=== PATIENT | female | born 1990 ===

== ENCOUNTER 2018-05-01 23:10 | Inpatient (IN) | payer OTHER, SELFPAY ==
--- NOTE | 2018-05-01 23:53 | ED PDOC ---
HPI: Psych/Substance Abuse Chief Complaint (Provider): psych eval History Per: Patient History/Exam Limitations: no limitations Additional Complaint(s): 28 y/o female history of depression presents for psych eval. Patient states she is having suicidal ideations without current plan. Patient states yesterday she used a knife to cut her right thigh because she wanted to . Patient admits to previous attempts in past, including a hospitalization here. Patient states she did not take medications that were prescribed upon discharge and did not follow up as instructed. Denies homicidal ideations, hallucinations, acute physical complaints. Patient admits to drinking one bottle of wine tonight. <Payton Mello - Last Filed: 05/02/18 04:45> <Marco Antonio Graf - Last Filed: 05/02/18 06:49> Time Seen by Provider: 05/01/18 23:42 Chief Complaint (Nursing): Psychiatric Evaluation Past Medical History Reviewed: Historical Data, Nursing Documentation, Vital Signs Vital Signs: Last Vital Signs Temp 98.2 F 05/01/18 23:28 Pulse 90 05/01/18 23:28 Resp 16 05/01/18 23:28 BP 132/100 H 05/01/18 23:28 Pulse Ox 98 05/01/18 23:28 - Medical History PMH: Depression Denies: Diabetes, Hepatitis, HIV, HTN, Chronic Kidney Disease, Seizures, Sexually Transmitted Disease - Surgical History Surgical History: Cholecystectomy - Family History Family History: States: Unknown Family Hx - Immunization History Hx Tetanus Toxoid Vaccination: Yes <Payton Mello - Last Filed: 05/02/18 04:45> Vital Signs: Last Vital Signs Temp 98.8 F 05/02/18 05:49 Pulse 80 05/02/18 05:49 Resp 18 05/02/18 05:49 BP 107/61 05/02/18 05:49 Pulse Ox 98 05/02/18 05:49 <Marco Antonio Graf - Last Filed: 05/02/18 06:49> - Allergies Allergies/Adverse Reactions: Allergies Allergy/AdvReac Type Severity Reaction Status Date / Time No Known Allergies Allergy Verified 05/02/18 06:48 Review of Systems ROS Statement: Except As Marked, All Systems Reviewed And Found Negative Psych: Positive for: Depression, Suicidal ideation <Payton Mello - Last Filed: 05/02/18 04:45> Physical Exam - Reviewed Nursing Documentation Reviewed: Yes Vital Signs Reviewed: Yes - Physical Exam Appears: Positive for: Well, Non-toxic, No Acute Distress Head Exam: Positive for: ATRAUMATIC, NORMAL INSPECTION, NORMOCEPHALIC Skin: Positive for: Normal Color Eye Exam: Positive for: Normal appearance ENT: Positive for: Normal ENT Inspection Cardiovascular/Chest: Positive for: Regular Rate, Rhythm Respiratory: Positive for: Normal Breath Sounds Gastrointestinal/Abdominal: Positive for: Normal Exam Extremity: Positive for: Normal ROM (scabbed abrasions right thigh; no surrounding erythema, tenderness noted) Neurologic/Psych: Positive for: Alert, Oriented (x3) <Payton Mello - Last Filed: 05/02/18 04:45> - Laboratory Results Result Diagrams: 05/02/18 00:00 05/02/18 00:00 - ECG O2 Sat by Pulse Oximetry: 98 - Progress ED Course And Treament: -cbc -cmp -serum alcohol -urinalysis -urine drug screen -1:1 -crisis eval 2:30 Patient sleeping; no distress 4:00 Patient sleeping; no distress <Payton Mello - Last Filed: 05/02/18 04:45> - Laboratory Results Result Diagrams: 05/02/18 00:00 05/02/18 00:00 <Marco Antonio Graf - Last Filed: 05/02/18 06:49> Medical Decision Making Medical Decision MakinAM Patient is accepted by crisis for admission by Dr. Costello with diagnosis of depression. Medically stable for psychiatric admission. <Marco Antonio Graf - Last Filed: 05/02/18 06:49> Disposition - Patient ED Disposition Is Patient to be Admitted: No - Disposition Disposition Time: 05:00 Patient Signed Over To: Marco Antonio Graf Handoff Comments: pending crisis eval <Payton Mello - Last Filed: 05/02/18 04:45> - Patient ED Disposition Is Patient to be Admitted: Yes - Disposition Disposition Time: 06:30 <Marco Antonio Graf - Last Filed: 05/02/18 06:49> - Clinical Impression Clinical Impression: Alcohol intoxication, Suicidal ideations - Disposition Condition: FAIR Forms: Flynn (Indonesian)
[2018-05-02 00:19] LABS: BASO % 0.8 % (0.0-2.0); EOS % 0.8 % (0.0-4.0); HEMOGLOBIN 13.5 g/dL (12.0-16.0); LYMPH # 2.1 K/uL (1.0-4.3); LYMPH % 40.4 % (20.0-40.0); MEAN CELL VOLUME 89.9 fl (81.0-99.0); MEAN CORPUSCULAR HEMOGLOBIN 28.9 pg (27.0-31.0); MEAN CORPUSCULAR HGB CONC 32.2 g/dL (33.0-37.0); MONO # 0.5 K/uL (0.0-0.8); MONO % 9.3 % (0.0-10.0); NEUT # 2.5 K/uL (1.8-7.0); NEUT % 48.7 % (50.0-75.0); NRBC % 0.1 % (0.0-0.0); RBC 4.65 Mil/uL (3.80-5.20); RED CELL DISTRIBUTION WIDTH 13.8 % (11.5-14.5); WHITE BLOOD COUNT 5.1 K/uL (4.8-10.8)
[2018-05-02 00:26] LABS: ALB/GLOB RATIO 1.3 (1.0-2.1); ALBUMIN 4.4 g/dL (3.5-5.0); ALT/SGPT 37 U/L (9-52); AST/SGOT 45 U/L (14-36); BLOOD UREA NITROGEN 7 mg/dl (7-17); CALCIUM 8.9 mg/dL (8.4-10.2); GFR NON-AFRICAN AMERICAN > 60
[2018-05-02 01:00] LABS: URINE BILIRUBIN NEGATIVE (NEGATIVE); URINE BLOOD MODERATE (NEGATIVE); URINE CLARITY SLIGHTY-CLOUDY (Clear); URINE COLOR YELLOW (YELLOW); URINE GLUCOSE (UA) NEG (Normal); URINE LEUKOCYTE ESTERASE NEG Leu/uL (Negative); URINE PROTEIN NEGATIVE (NEGATIVE); URINE UROBILINOGEN 0.2-1.0 mg/dL (0.2-1.0)
[2018-05-02 01:42] LABS: BARBITURATES, UR NEGATIVE (NEGATIVE); BENZODIAZEPINES, UR NEGATIVE (NEGATIVE); OPIATES, UR NEGATIVE (NEGATIVE); PHENCYCLIDINE, UR NEGATIVE (NEGATIVE)
[2018-05-02] MEDS ORDERED: Magnesium Hydroxide Susp 30 ml UD PO PRN (09:41)
[2018-05-02] MEDS ORDERED: Alum-Mag Hydrox-Simethicone Susp (30 mL) PO PRN (09:41)
[2018-05-02] MEDS ORDERED: DiphenhydrAMINE 50 mg/ml Inj IM PRN (09:41)
[2018-05-02 10:02] VITALS: O2SAT 99
--- NOTE | 2018-05-02 10:10 | PCM.PSYCH ---
Initial Psychiatric Evaluation - Initial Psychiatric Evaluation Type of Admission: Voluntary Legal Status: Capacity Chief Complaint (in patient's own words): "I was having suicidal thoughts." Patient's Reaction to Hospitalization: HPI: 28 yo female w/ h/o alcohol and cannabis use disorders and borderline personality disorder, presented acutely intoxicated on ETOH, w/ worsening depression, suicidal ideation, w/ self injurious behaviors (superficial cuts to Right thigh), poor sleep and using Xanax brought from [facility] to sleep at night. Patient is able to contract for safety at this time. She denies AH/VH/HI/paranoia/delusions. She was prescribed Abilify during her last psychiatric admission in November 2017, but was not compliant with treatment or medications following discharge. PPHx: History of psychiatric hospitalization on 3[facility] in November 2017; not compliant w/ Abilify or outpatient psychiatric treatment PMHx: Denies acute or chronic medical issues PSurgHx: Gallbladder removal (age 19); Gastric bypass (age 22) ALL: NKDA SHx: Drinks 1 bottle of wine/day; uses cannabis daily; uses non-prescribed Xanax; denies cig use; lives alone Current Medications: Active Medications Generic Name Dose Route Start Last Admin Trade Name Freq PRN Reason Stop Dose Admin Acetaminophen 650 mg 05/02/18 09:41 Tylenol 325mg Tab PO Q4 PRN Pain, moderate (4-7) Al Hydrox/Mg Hydrox/Simethicone 30 ml 05/02/18 09:41 Maalox Plus 30 Ml PO Q4 PRN Dyspepsia Diphenhydramine HCl 50 mg 05/02/18 09:41 Benadryl IM Q6 PRN Extrapyramidal S/S Unable PO Diphenhydramine HCl 50 mg 05/02/18 09:41 Benadryl PO Q6 PRN Extrapyramidal Symptoms Haloperidol 5 mg 05/02/18 09:41 Haldol PO Q4 PRN Agitation Haloperidol Lactate 5 mg 05/02/18 09:41 Haldol IM Q4 PRN Agitation, Unable to Take PO Lorazepam 2 mg 05/02/18 09:41 Ativan IM Q4 PRN Anxiety/Agitation,Unable PO Lorazepam 2 mg 05/02/18 09:41 Ativan PO Q4 PRN Anxiety/Agitation Lorazepam 1 mg 05/02/18 13:00 Ativan PO TID [facility] Magnesium Hydroxide 30 ml 05/02/18 09:41 Milk Of Magnesia PO HS PRN Constipation Past Psychiatric History - Past Psychiatric History Previous Treatment History: Inpatient Pertinent Medical Hx (Current Medical&Sleep Prob, Allergies): Allergies Allergy/AdvReac Type Severity Reaction Status Date / Time No Known Allergies Allergy Verified 05/02/18 06:48 No Known Home Med 05/02/18 Review of Systems - Psychiatric Psychiatric: Abnormal Sleep Pattern, Anxiety, Depression, Difficulty Concentrating, Suicidal Ideation Mental Status Examination - Personal Presentation Personal Presentation: Looks stated age - Affect Affect: Constricted, Depressed - Motor Activity Motor Activity: Calm - Reliability in Providing Information Reliability in Providing Information: Fair - Speech Speech: Organized, Coherent - Mood Mood: Depressed - Formal Thought Process Formal Thought Process: No Impairment - Hallucinations/Delusions Additional comments: NO AH/VH/paranoia/delusions - Obsessions/Compulsions Obsessions: No Compulsions: No - Cognitive Functions Orientation: Person, Place, Situation, Time Attention/Concentration: Attentive Estimate of Intelligence: Average Judgement: Imparied, as evidence by: Poor judgement, Imparied, as evidence by: Lack of insight into illness Memory: Recent intact, as evidence by: Ability to recall events of the day, Remote intact, as evidenced by: Abilit to recall sig. life events, Remote intact, as evidenced by: Ability to recall historical events - Risk Risk: Suicidal, Diminished functioning - Strength & Assets Inventory Strength & Assets Inventory: Cooperative - Limitations Limitations: Living alone DSM 5 DX - DSM 5 DSM 5 Diagnosis: Alcohol Use Disorder; Alcohol Induced Mood Disorder; Cannabis Use Disorder; Borderline Personality Disorder - Recommended/Plan of Treatment Treatment Recommendations and Plan of Treatment: Alcohol Use Disorder; Alcohol Induced Mood Disorder; Cannabis Use Disorder; Borderline Personality Disorder -Admit to psychiatry unit -Psychoeducation provided re: dangers of substance abuse -Ativan to prevent ETOH withdrawal symptoms -Thiamine, Folate, MVI -Start Abilify -Medicine consult -Individual and group therapy -Disposition planning Projected ELOS: 5-10 days Discharge Plan and Discharge Criteria: Discharge when patient is psychiatrically stable - Smoking Cessation Smoking Cessation Initiated: No Reason for not providing: Not indicated
--- NOTE | 2018-05-02 11:33 | PCM.BM ---
Treatment Plan Problems - Problems identified on initial assessmt depression Date Initiated: 05/02/18 Time Initiated: 11:31 Assessment reference: HP, SW, NA Status: Active Priority: 1 self harm Date Initiated: 05/02/18 Time Initiated: 11:32 Assessment reference: HP, SW, NA Status: Active altered sleep Date Initiated: 05/02/18 Time Initiated: 11:33 Assessment reference: HP, SW, NA Status: Active medication non adherence Date Initiated: 05/02/18 Time Initiated: 11:34 Assessment reference: HP, SW, NA nutrition more than body requirements Date Initiated: 05/02/18 Time Initiated: 11:34 Assessment reference: HP, SW, NA Status: Active Treatment assets and liabiliti Patient Assests: cooperative, educated, ADL independent, physically healthy, good support system, negotiates basic needs, cognitively intact Patient Liabilities: live alone, relationship conflicts - Milieu Protocol Maintain good personal hygiene: daily Encourage regular showers, daily Remind patient to perform daily oral care, daily Assist patient to perform ADL's Maintain personal safety: daily Educate patient to report safety concerns to staff, every shift Monitor environment for contraband/sharps Medication safety: Monitor for expected outcome, potential side effects: every shift, Assess barriers to learning: every shift, Assess readiness for medication education: every shift Milieu Narrative: Alcohol Use Disorder; Alcohol Induced Mood Disorder; Cannabis Use Disorder; Borderline Personality Disorder -Admit to psychiatry unit -Psychoeducation provided re: dangers of substance abuse -Ativan to prevent ETOH withdrawal symptoms -Thiamine, Folate, MVI -Start Abilify -Medicine consult -Individual and group therapy -Disposition planning Family Contact Family contact name: syl brenna Discharge/Continuing Care - Treatment Team Participation Patient/Family/SO Statement: Alcohol Use Disorder; Alcohol Induced Mood Disorder; Cannabis Use Disorder; Borderline Personality Disorder -Admit to psychiatry unit -Psychoeducation provided re: dangers of substance abuse -Ativan to prevent ETOH withdrawal symptoms -Thiamine, Folate, MVI -Start Abilify -Medicine consult -Individual and group therapy -Disposition planning
[2018-05-02] MEDS: Multivitamin With Minerals Tab PO SCH (14:22)
[2018-05-02] MEDS ORDERED: Pneumococcal 23-Valent Vaccine IM ONE ×2 (14:33→16:00)
[2018-05-02] MEDS ORDERED: Influenza Vaccine (5 YR UP)/PF 60 MCG/0.5 ML SYR IM ONE ×2 (14:34→16:00)
--- NOTE | 2018-05-02 17:16 | CP.PCM.CON ---
History of Present Illness - History of Present Illness History of Present Illness: 28 yo female with history of borderline personality DO admitted because of worsening depression and suicidal ideation. Review of Systems - Review of Systems All systems: reviewed and no additional remarkable complaints except (aside from those mentioned above, 12 point system review were negative by me) Past Patient History - Past Social History Smoking Status: Never Smoked Chewing Tobacco Use: No Cigar Use: No Alcohol: > 2 Drinks/Day Drugs: Cannabis - CARDIAC Hx Cardiac Disorders: No - PULMONARY Hx Respiratory Disorders: No Hx Tuberculosis: No - NEUROLOGICAL Hx Neurological Disorder: No HX Cerebrovascular Accident: No Hx Seizures: No - HEENT Hx HEENT Problems: No Other/Comment: wears corrective glasses - RENAL Hx Chronic Kidney Disease: No - ENDOCRINE/METABOLIC Hx Endocrine Disorders: No - HEMATOLOGICAL/ONCOLOGICAL Hx Blood Disorders: No Hx Cancer: No Hx Human Immunodeficiency Virus (HIV): No - INTEGUMENTARY Hx Dermatological Problems: No - MUSCULOSKELETAL/RHEUMATOLOGICAL Hx Musculoskeletal Disorders: No - GASTROINTESTINAL Hx Gastrointestinal Disorders: No - GENITOURINARY/GYNECOLOGICAL Hx Genitourinary Disorders: No Hx Sexually Transmitted Disorders: No - PSYCHIATRIC Hx Anxiety: Yes Hx Depression: Yes Hx Physical Abuse: No Hx Sexual Abuse: No Hx Substance Use: Yes (marijuana) - SURGICAL HISTORY Hx Cholecystectomy: Yes Hx Gastric Bypass Surgery: Yes (7rs ago) - ANESTHESIA Hx Anesthesia: Yes Hx Anesthesia Reactions: No Meds Allergies/Adverse Reactions: Allergies Allergy/AdvReac Type Severity Reaction Status Date / Time No Known Allergies Allergy Verified 05/02/18 06:48 - Medications Medications: Current Medications Acetaminophen (Tylenol 325mg Tab) 650 mg PO Q4 PRN PRN Reason: Pain, moderate (4-7) Al Hydrox/Mg Hydrox/Simethicone (Maalox Plus 30 Ml) 30 ml PO Q4 PRN PRN Reason: Dyspepsia Aripiprazole (Abilify) 10 mg PO DAILY [facility] Last Admin: 05/02/18 14:22 Dose: 10 mg Diphenhydramine HCl (Benadryl) 50 mg IM Q6 PRN PRN Reason: Extrapyramidal S/S Unable PO Diphenhydramine HCl (Benadryl) 50 mg PO Q6 PRN PRN Reason: Extrapyramidal Symptoms Folic Acid (Folic Acid) 1 mg PO DAILY [facility] Last Admin: 05/02/18 14:22 Dose: 1 mg Haloperidol (Haldol) 5 mg PO Q4 PRN PRN Reason: Agitation Haloperidol Lactate (Haldol) 5 mg IM Q4 PRN PRN Reason: Agitation, Unable to Take PO Lorazepam (Ativan) 2 mg IM Q4 PRN PRN Reason: Anxiety/Agitation,Unable PO Lorazepam (Ativan) 1 mg PO TID [facility] Last Admin: 05/02/18 14:22 Dose: 1 mg Lorazepam (Ativan) 1 mg PO Q4 PRN PRN Reason: Alcohol withdrawal symptoms Magnesium Hydroxide (Milk Of Magnesia) 30 ml PO HS PRN PRN Reason: Constipation Multivitamins/Minerals (Therapeutic-M Tab) 1 tab PO DAILY [facility] Last Admin: 05/02/18 14:22 Dose: 1 tab Thiamine HCl (Vitamin B1 Tab) 100 mg PO DAILY [facility] Last Admin: 05/02/18 14:22 Dose: 100 mg Physical Exam - Constitutional Appears: No Acute Distress - Head Exam Head Exam: ATRAUMATIC - Eye Exam Eye Exam: absent: Scleral icterus - ENT Exam ENT Exam: Mucous Membranes Moist - Neck Exam Neck exam: Negative for: Meningismus - Respiratory Exam Respiratory Exam: absent: Rales, Rhonchi, Wheezes, Respiratory Distress - Cardiovascular Exam Cardiovascular Exam: REGULAR RHYTHM, +S1, +S2 - GI/Abdominal Exam GI & Abdominal Exam: Soft. absent: Tenderness - Rectal Exam Rectal Exam: Deferred - Extremities Exam Extremities exam: Negative for: calf tenderness, pedal edema - Neurological Exam Neurological exam: Alert, Oriented x3 - Psychiatric Exam Psychiatric exam: Normal Affect - Skin Skin Exam: Dry, Intact Results - Vital Signs Recent Vital Signs: Last Vital Signs Temp 99 F 05/02/18 16:17 Pulse 104 H 05/02/18 16:17 Resp 20 05/02/18 16:17 BP 142/72 05/02/18 16:17 Pulse Ox 99 05/02/18 10:01 - Labs Result Diagrams: 05/02/18 00:00 05/02/18 00:00 Labs: Laboratory Results - last 24 hr 05/02/18 05/02/18 05/02/18 00:00 00:00 00:53 WBC 5.1 RBC 4.65 Hgb 13.5 Hct 41.8 MCV 89.9 MCH 28.9 MCHC 32.2 L RDW 13.8 Plt Count 224 MPV 8.0 Neut % (Auto) 48.7 L Lymph % (Auto) 40.4 H Story % (Auto) 9.3 Eos % (Auto) 0.8 Baso % (Auto) 0.8 Neut # (Auto) 2.5 Lymph # (Auto) 2.1 Story # (Auto) 0.5 Eos # (Auto) 0.0 Baso # (Auto) 0.0 Sodium 143 Potassium 4.0 Chloride 108 H Carbon Dioxide 24 Anion Gap 15 BUN 7 Creatinine 0.6 L Est GFR ( Amer) > 60 Est GFR (Non-Af Amer) > 60 Random Glucose 93 Calcium 8.9 Total Bilirubin 0.2 AST 45 H ALT 37 Alkaline Phosphatase 81 Total Protein 7.8 Albumin 4.4 Globulin 3.4 Albumin/Globulin Ratio 1.3 Urine Color Urine Clarity Urine pH Ur Specific [place] Urine Protein Urine Glucose (UA) Urine Ketones Urine Blood Urine Nitrate Urine Bilirubin Urine Urobilinogen Ur Leukocyte Esterase Urine Opiates Screen Negative Urine Methadone Screen Negative Ur Barbiturates Screen Negative Ur Phencyclidine Scrn Negative Ur Amphetamines Screen Negative U Benzodiazepines Scrn Negative U Oth Cocaine Metabols Negative U Cannabinoids Screen Positive H Alcohol, Quantitative 270 H 05/02/18 00:53 WBC RBC Hgb Hct MCV MCH MCHC RDW Plt Count MPV Neut % (Auto) Lymph % (Auto) Story % (Auto) Eos % (Auto) Baso % (Auto) Neut # (Auto) Lymph # (Auto) Story # (Auto) Eos # (Auto) Baso # (Auto) Sodium Potassium Chloride Carbon Dioxide Anion Gap BUN Creatinine Est GFR ( Amer) Est GFR (Non-Af Amer) Random Glucose Calcium Total Bilirubin AST ALT Alkaline Phosphatase Total Protein Albumin Globulin Albumin/Globulin Ratio Urine Color Yellow Urine Clarity Slighty-cloudy Urine pH 6.0 Ur Specific [place] 1.010 Urine Protein Negative Urine Glucose (UA) Neg Urine Ketones Trace Urine Blood Moderate Urine Nitrate Negative Urine Bilirubin Negative Urine Urobilinogen 0.2-1.0 Ur Leukocyte Esterase Neg Urine Opiates Screen Urine Methadone Screen Ur Barbiturates Screen Ur Phencyclidine Scrn Ur Amphetamines Screen U Benzodiazepines Scrn U Oth Cocaine Metabols U Cannabinoids Screen Alcohol, Quantitative Assessment & Plan (1) Suicidal ideations Status: Acute Comment: psyche is managing (2) Depression Status: Acute
[2018-05-03 07:00] LABS: BASO % 0.6 % (0.0-2.0); EOS # 0.1 K/uL (0.0-0.7); EOS % 0.9 % (0.0-4.0); HEMOGLOBIN 13.4 g/dL (12.0-16.0); LYMPH # 1.1 K/uL (1.0-4.3); LYMPH % 19.4 % (20.0-40.0); MEAN CELL VOLUME 90.2 fl (81.0-99.0); MEAN CORPUSCULAR HEMOGLOBIN 29.9 pg (27.0-31.0); MEAN CORPUSCULAR HGB CONC 33.1 g/dL (33.0-37.0); MEAN PLATELET VOLUME 8.2 fl (7.2-11.7); MONO # 0.7 K/uL (0.0-0.8); NEUT # 3.7 K/uL (1.8-7.0); NEUT % 66.1 % (50.0-75.0); NRBC % 0.1 % (0.0-0.0); RBC 4.5 Mil/uL (3.80-5.20); RED CELL DISTRIBUTION WIDTH 13.8 % (11.5-14.5); WHITE BLOOD COUNT 5.5 K/uL (4.8-10.8)
[2018-05-03] MEDS: Multivitamin With Minerals Tab PO SCH (08:38)
[2018-05-03 10:20] LABS: LDL CHOLESTEROL 95 mg/dL (0-129)
[2018-05-03 10:22] LABS: T4 4.78 ug/dl (5.5-11.0)
[2018-05-03 10:29] LABS: ALB/GLOB RATIO 1.2 (1.0-2.1); ALT/SGPT 33 U/L (9-52); AST/SGOT 59 U/L (14-36); BLOOD UREA NITROGEN 12 mg/dl (7-17); CALCIUM 9.3 mg/dL (8.4-10.2); GFR NON-AFRICAN AMERICAN > 60; HDL CHOLESTEROL 84 MG/DL (30-70)
--- NOTE | 2018-05-03 11:15 | PCM.PYCHPN ---
Psychiatric Progress Note - Psychiatric Progress Note Patient seen today, length of contact: Pt evaluated, case discussed w/ team, chart reviewed Patient Chief Complaint: "I don't want to live anymore." Problems Identified/Issues Discussed: Pt reports that she does not want to live anymore, but denies active suicidal plan/intent. She continues to report feeling depressed, hopeless and anxious. She denies current signs/symptoms of ETOH withdrawal. No adverse effects to medications reported. No AH/VH/paranoia/delusions. Medication Change: Yes (Start Vitamin D for deficiency) Medical Record Reviewed: Yes Consults ordered or reviewed: Medicine Mental Status Examination - Cognitive Function Orientation: Person, Place, Situation, Time Memory: Intact Attention: WNL Concentration: WNL Association: WNL Fund of Knowledge: [facility] Decription of patient's judgement and insights: Poor I/J - Mood Mood: Depressed - Affect Affect: Constricted, Depressed - Speech Speech: Soft - Formal Thought Process Formal Thought Process: No Impairment Psychotic Thoughts and Behaviors: NO AH/VH/paranoia/delusions - Suicidal Ideation Suicidal Ideation: Yes Plan: Passive wishes that she was not alive; no active plan/intent - Homicidal Ideation Homicidal Ideation: No Goal/Treatment Plan - Goal/Treatment Plan Need for Continued Stay: Remain at risks for inpatient hospitalization, Severe depression anxiety, Discharge may exacerbated symptoms Progress Toward Problem(s) and Goals/Treatment Plan: Alcohol Use Disorder; Alcohol Induced Mood Disorder; Cannabis Use Disorder; Borderline Personality Disorder -Psychoeducation provided re: dangers of substance abuse -Ativan to prevent ETOH withdrawal symptoms, will taper gradually -Thiamine, Folate, MVI, Vitamin D -Continue Abilify 10 mg PO Daily -Medicine consult -Individual and group therapy -Disposition planning Estimated Date of D/C: 05/07/18
[2018-05-03] MEDS ORDERED: Influenza Vaccine (5 YR UP)/PF 60 MCG/0.5 ML SYR IM ONE (13:59)
[2018-05-03] MEDS ORDERED: Influenza Vaccine 60 mcg/0.5 mL SYR (4YR UP) IM ONE (14:08)
[2018-05-03 17:06] LABS: FOLATE 15.2 ng/mL
[2018-05-04] MEDS: Multivitamin With Minerals Tab PO SCH (08:36)
[2018-05-04] MEDS: Cholecalciferol 400 Intl Units Tab PO SCH (08:37)
--- NOTE | 2018-05-04 09:52 | PCM.PYCHPN ---
Psychiatric Progress Note - Psychiatric Progress Note Patient seen today, length of contact: Pt evaluated, case discussed w/ team, chart reviewed Patient Chief Complaint: "I don't want to live anymore." Problems Identified/Issues Discussed: Pt reports feeling tired, irritable and depressed. She continues to report that she does not want to live anymore, but denies active suicidal plan or intent. She continues to feel hopeless. She denies current signs/symptoms of ETOH withdrawal. We discussed gradual tapering of Ativan. No adverse effects to medications reported. No AH/VH/paranoia/delusions. Medication Change: Yes (Taper Ativan) Medical Record Reviewed: Yes Consults ordered or reviewed: Medicine Mental Status Examination - Cognitive Function Orientation: Person, Place, Situation, Time Memory: Intact Attention: WNL Concentration: WNL Association: WNL Fund of Knowledge: [facility] Decription of patient's judgement and insights: Poor I/J - Mood Mood: Depressed - Affect Affect: Constricted, Depressed - Speech Speech: Soft - Formal Thought Process Formal Thought Process: No Impairment Psychotic Thoughts and Behaviors: NO AH/VH/paranoia/delusions - Suicidal Ideation Suicidal Ideation: Yes Plan: Passive wishes she was not alive; no active plan/intent - Homicidal Ideation Homicidal Ideation: No Goal/Treatment Plan - Goal/Treatment Plan Need for Continued Stay: Remain at risks for inpatient hospitalization, Severe depression anxiety, Discharge may exacerbated symptoms Progress Toward Problem(s) and Goals/Treatment Plan: Alcohol Use Disorder; Alcohol Induced Mood Disorder; Cannabis Use Disorder; Borderline Personality Disorder -Psychoeducation provided re: dangers of substance abuse -Taper Ativan; will continues to monitor for symptoms of ETOH withdrawal -Thiamine, Folate, MVI, Vitamin D -Continue Abilify 10 mg PO Daily -Medicine consult -Individual and group therapy -Disposition planning Estimated Date of D/C: 05/07/18
--- NOTE | 2018-05-04 17:09 | CP.PCM.PN ---
Subjective - Date & Time of Evaluation Date of Evaluation: 05/04/18 Time of Evaluation: 16:45 - Subjective Subjective: Patient reported to have tried cutting herself with her nails. She claimed she could not control herself her left arm and right thigh. Multiple linear abrasions noted on both left arm and right thigh. Advised RN to apply Bacitracin ointment BID on lesions until dried up. Objective - Vital Signs/Intake and Output Vital Signs (last 24 hours): Temp Pulse Resp BP Pulse Ox 97.6 F 71 18 125/67 99 05/04/18 06:00 05/04/18 06:00 05/04/18 06:00 05/04/18 06:00 05/02/18 10:01 - Medications Medications: Current Medications Acetaminophen (Tylenol 325mg Tab) 650 mg PO Q4 PRN PRN Reason: Pain, moderate (4-7) Last Admin: 05/03/18 19:59 Dose: 650 mg Al Hydrox/Mg Hydrox/Simethicone (Maalox Plus 30 Ml) 30 ml PO Q4 PRN PRN Reason: Dyspepsia Aripiprazole (Abilify) 10 mg PO DAILY [facility] Last Admin: 05/04/18 08:36 Dose: 10 mg Diphenhydramine HCl (Benadryl) 50 mg IM Q6 PRN PRN Reason: Extrapyramidal S/S Unable PO Diphenhydramine HCl (Benadryl) 50 mg PO Q6 PRN PRN Reason: Extrapyramidal Symptoms Diphenhydramine HCl (Benadryl) 50 mg PO HS PRN PRN Reason: Sleep Last Admin: 05/03/18 21:00 Dose: 50 mg Folic Acid (Folic Acid) 1 mg PO DAILY [facility] Last Admin: 05/04/18 08:36 Dose: 1 mg Haloperidol (Haldol) 5 mg PO Q4 PRN PRN Reason: Agitation Haloperidol Lactate (Haldol) 5 mg IM Q4 PRN PRN Reason: Agitation, Unable to Take PO Lorazepam (Ativan) 2 mg IM Q4 PRN PRN Reason: Anxiety/Agitation,Unable PO Lorazepam (Ativan) 1 mg PO Q4 PRN PRN Reason: Alcohol withdrawal symptoms Lorazepam (Ativan) 0.5 mg PO TID [facility] Last Admin: 05/04/18 16:34 Dose: 0.5 mg Magnesium Hydroxide (Milk Of Magnesia) 30 ml PO HS PRN PRN Reason: Constipation Multivitamins/Minerals (Therapeutic-M Tab) 1 tab PO DAILY [facility] Last Admin: 05/04/18 08:36 Dose: 1 tab Thiamine HCl (Vitamin B1 Tab) 100 mg PO DAILY [facility] Last Admin: 05/04/18 08:36 Dose: 100 mg Vitamin D (Vitamin D 400 Intl Units Tab) 400 intlu PO DAILY [facility] Last Admin: 05/04/18 08:37 Dose: 400 intlu - Labs Labs: 05/03/18 06:00 05/03/18 04:00 Assessment and Plan (1) Suicidal ideations Status: Acute (2) Depression Status: Acute
[2018-05-04] MEDS: Bacitracin OINT 15GM TOP SCH (21:17)
[2018-05-05] MEDS: Multivitamin With Minerals Tab PO SCH (09:39)
[2018-05-05] MEDS: Cholecalciferol 400 Intl Units Tab PO SCH (09:42)
[2018-05-05] MEDS: Bacitracin OINT 15GM TOP SCH ×2 (09:52→17:34)
--- NOTE | 2018-05-05 10:28 | PCM.PYCHPN ---
Psychiatric Progress Note - Psychiatric Progress Note Patient seen today, length of contact: Pt evaluated, case discussed w/ team, chart reviewed Patient Chief Complaint: "I don't want to live anymore." Problems Identified/Issues Discussed: Pt was placed on 1:1 yesterday because she was made superficial scratches (with nail) to her wrist and thigh. She reports that she was feeling stressed and anxious and did not know how to cope so she self injured. She continues to have intermittent wishs that she was not alive, but denies active suicidal plan/intent. She denies current signs/symptoms of ETOH withdrawal. No adverse effects to medications reported. No AH/VH/paranoia/delusions. Medication Change: Yes (Increase Abilify) Medical Record Reviewed: Yes Consults ordered or reviewed: Medicine consult Mental Status Examination - Cognitive Function Orientation: Person, Place, Situation, Time Memory: Intact Attention: WNL Concentration: WNL Association: [facility] Fund of Knowledge: [facility] Decription of patient's judgement and insights: Poor I/J - Mood Mood: Depressed - Affect Affect: Constricted, Depressed - Speech Speech: Soft - Formal Thought Process Formal Thought Process: No Impairment Psychotic Thoughts and Behaviors: NO AH/VH/paranoia/delusions - Suicidal Ideation Suicidal Ideation: Yes Plan: Denies active plan/intent - Homicidal Ideation Homicidal Ideation: No Goal/Treatment Plan - Goal/Treatment Plan Need for Continued Stay: Remain at risks for inpatient hospitalization, Severe depression anxiety, Discharge may exacerbated symptoms Progress Toward Problem(s) and Goals/Treatment Plan: Alcohol Use Disorder; Alcohol Induced Mood Disorder; Cannabis Use Disorder; Borderline Personality Disorder vs Bipolar II Disorder -Psychoeducation provided re: dangers of substance abuse -Continue Ativan; will continue to monitor for symptoms of ETOH withdrawal -Thiamine, Folate, MVI, Vitamin D -Continue 1:1 for safety -Increase Abilify to 15 mg PO Daily -Medicine consult -Individual and group therapy -Disposition planning Estimated Date of D/C: 05/09/18
[2018-05-06] MEDS: Multivitamin With Minerals Tab PO SCH (08:40)
[2018-05-06] MEDS: Cholecalciferol 400 Intl Units Tab PO SCH (08:41)
[2018-05-06] MEDS: Bacitracin OINT 15GM TOP SCH ×2 (08:42→16:26)
--- NOTE | 2018-05-06 09:29 | PCM.PYCHPN ---
Psychiatric Progress Note - Psychiatric Progress Note Patient seen today, length of contact: Pt evaluated, case discussed w/ team, chart reviewed Patient Chief Complaint: "I'm feeling better." Problems Identified/Issues Discussed: Pt is able to contract for safety. No significant events overnight. She reports that her mood is improving and she is feeling more hopeful. She denies active self injurious ideation/plan/intent. She denies current signs/symptoms of ETOH withdrawal. No adverse effects to medications reported. No AH/VH/paranoia/delusions. Medication Change: No Medical Record Reviewed: Yes Consults ordered or reviewed: Medicine consult Mental Status Examination - Cognitive Function Orientation: Person, Place, Situation, Time Memory: Intact Attention: WNL Concentration: WNL Association: WNL Fund of Knowledge: WN Decription of patient's judgement and insights: Poor I/J - Mood Mood: Depressed - Affect Affect: Constricted, Depressed - Speech Speech: Soft - Formal Thought Process Formal Thought Process: No Impairment Psychotic Thoughts and Behaviors: NO AH/VH/paranoia/delusions - Suicidal Ideation Suicidal Ideation: No - Homicidal Ideation Homicidal Ideation: No Goal/Treatment Plan - Goal/Treatment Plan Need for Continued Stay: Remain at risks for inpatient hospitalization, Severe depression anxiety, Discharge may exacerbated symptoms Progress Toward Problem(s) and Goals/Treatment Plan: Alcohol Use Disorder; Alcohol Induced Mood Disorder; Cannabis Use Disorder; Borderline Personality Disorder vs Bipolar II Disorder -Psychoeducation provided re: dangers of substance abuse -Continue Ativan; will continue to monitor for symptoms of ETOH withdrawal -Thiamine, Folate, MVI, Vitamin D -Discontinue 1:1 -Continue Abilify -Medicine consult -Individual and group therapy -Disposition planning Estimated Date of D/C: 05/09/18
--- NOTE | 2018-05-07 08:43 | PCM.PYCHPN ---
Psychiatric Progress Note - Psychiatric Progress Note Patient seen today, length of contact: Pt evaluated, case discussed w/ team, chart reviewed Patient Chief Complaint: "Thoughts of self harm." Problems Identified/Issues Discussed: Pt continues to have intermittent thoughts of self harm (scratching herself) when she feels anxious, but is able to contract for safety at this time. She continues to report feeling depressed and anxious w/ poor sleep. She denies cu rrent signs/symptoms of ETOH withdrawal. No adverse effects to medications reported. No AH/VH/paranoia/delusions. Medication Change: Yes (Taper Ativan; Increase Trazodone) Medical Record Reviewed: Yes Consults ordered or reviewed: Medicine consult Mental Status Examination - Cognitive Function Orientation: Person, Place, Situation, Time Memory: Intact Attention: WNL Concentration: WNL Association: WNL Fund of Knowledge: WNL Decription of patient's judgement and insights: Poor I/J - Mood Mood: Depressed - Affect Affect: Constricted, Depressed - Speech Speech: Soft - Formal Thought Process Formal Thought Process: No Impairment Psychotic Thoughts and Behaviors: NO AH/VH/paranoia/delusions - Suicidal Ideation Suicidal Ideation: No Plan: +Thought of self harm (scratching) - Homicidal Ideation Homicidal Ideation: No Goal/Treatment Plan - Goal/Treatment Plan Need for Continued Stay: Remain at risks for inpatient hospitalization, Severe depression anxiety, Discharge may exacerbated symptoms Progress Toward Problem(s) and Goals/Treatment Plan: Alcohol Use Disorder; Alcohol Induced Mood Disorder; Cannabis Use Disorder; Borderline Personality Disorder vs Bipolar II Disorder -Psychoeducation provided re: dangers of substance abuse -Taper Ativan -Thiamine, Folate, MVI, Vitamin D -Continue Abilify -Increase Trazodone -Medicine consult -Individual and group therapy -Disposition planning Estimated Date of D/C: 05/10/18
[2018-05-07] MEDS: Bacitracin OINT 15GM TOP SCH ×2 (08:57→16:24)
[2018-05-07] MEDS: Multivitamin With Minerals Tab PO SCH (08:57)
[2018-05-07] MEDS: Cholecalciferol 400 Intl Units Tab PO SCH (08:57)
[2018-05-08] MEDS: Multivitamin With Minerals Tab PO SCH (08:43)
[2018-05-08] MEDS: Bacitracin OINT 15GM TOP SCH ×2 (08:44→17:17)
[2018-05-08] MEDS: Cholecalciferol 400 Intl Units Tab PO SCH (08:44)
--- NOTE | 2018-05-08 08:44 | PCM.PYCHPN ---
Psychiatric Progress Note - Psychiatric Progress Note Patient seen today, length of contact: Pt evaluated, case discussed w/ team, chart reviewed Patient Chief Complaint: "I'm getting better." Problems Identified/Issues Discussed: Pt reports that her mood is improving. She denies thoughts of self harm or suicidal ideation/plan/intent. She has brighter affect, is more goal oriented and hopeful. She reports improved sleep. No signs/symptoms of ETOH withdrawal. No AH/VH/paranoia/delusions. Medication Change: Yes (Stop Ativan) Medical Record Reviewed: Yes Consults ordered or reviewed: Medicine consult Mental Status Examination - Cognitive Function Orientation: Person, Place, Situation, Time Memory: Intact Attention: WNL Concentration: WNL Association: WNL Fund of Knowledge: [place] Decription of patient's judgement and insights: Improving I/J - Mood Mood: Depressed - Affect Affect: Broad - Speech Speech: Appropriate - Formal Thought Process Formal Thought Process: No Impairment Psychotic Thoughts and Behaviors: NO AH/VH/paranoia/delusions - Suicidal Ideation Suicidal Ideation: No - Homicidal Ideation Homicidal Ideation: No Goal/Treatment Plan - Goal/Treatment Plan Need for Continued Stay: Severe depression anxiety, Discharge may exacerbated symptoms Progress Toward Problem(s) and Goals/Treatment Plan: Alcohol Use Disorder; Alcohol Induced Mood Disorder; Cannabis Use Disorder; Borderline Personality Disorder vs Bipolar II Disorder -Psychoeducation provided re: dangers of substance abuse -Stop Ativan -Thiamine, Folate, MVI, Vitamin D -Continue Abilify -Continue Trazodone -Medicine consult -Individual and group therapy -Disposition planning Estimated Date of D/C: 05/10/18
--- NOTE | 2018-05-09 08:10 | PCM.PYCHPN ---
Psychiatric Progress Note - Psychiatric Progress Note Patient seen today, length of contact: Pt evaluated, case discussed w/ team, chart reviewed Patient Chief Complaint: "I'm getting better." Problems Identified/Issues Discussed: Pt reports that her mood continues to improve. She reports improved sleep. No current self injurious or suicidal ideation. Psychoeducation provided on the dangers of ETOH abuse. We discussed coping strategies to deal with stress. No AH/VH/paranoia/delusions. Medication Change: No Medical Record Reviewed: Yes Consults ordered or reviewed: Medicine consult Mental Status Examination - Cognitive Function Orientation: Person, Place, Situation, Time Memory: Intact Attention: WNL Concentration: WNL Association: WNL Fund of Knowledge: WN Decription of patient's judgement and insights: Improving I/J - Mood Mood: Anxious - Affect Affect: Broad - Speech Speech: Appropriate - Formal Thought Process Formal Thought Process: No Impairment Psychotic Thoughts and Behaviors: NO AH/VH/paranoia/delusions - Suicidal Ideation Suicidal Ideation: No - Homicidal Ideation Homicidal Ideation: No Goal/Treatment Plan - Goal/Treatment Plan Need for Continued Stay: Severe depression anxiety Progress Toward Problem(s) and Goals/Treatment Plan: Alcohol Use Disorder; Alcohol Induced Mood Disorder; Cannabis Use Disorder; Borderline Personality Disorder vs Bipolar II Disorder -Psychoeducation provided re: dangers of substance abuse -Vistaril PRN anxiety -Thiamine, Folate, MVI, Vitamin D -Continue Abilify -Continue Trazodone -Medicine consult -Individual and group therapy -Disposition planning- patient improving clinically, will likely discharge tomorrow Estimated Date of D/C: 05/10/18
[2018-05-09] MEDS: Multivitamin With Minerals Tab PO SCH (08:53)
[2018-05-09] MEDS: Bacitracin OINT 15GM TOP SCH ×2 (08:53→16:48)
[2018-05-09] MEDS: Cholecalciferol 400 Intl Units Tab PO SCH (08:54)
[2018-05-10 06:09] VITALS: BP 101/66; PULSE 62; RESP 19; TEMP 97.2
--- NOTE | 2018-05-10 08:14 | PCM.PYCHDC ---
Mental Status Examination - Mental Status Examination Orientation: Person, Place, Situation, Time Memory: Intact Mood: Neutral Affect: Broad Speech: Appropriate Attention: WNL Concentration: WNL Association: WNL Fund of Knowledge: WNL Formal Thought Process: No Impairment Description of patient's judgement and insight: Fair I/J Psychotic Thoughts and Behaviors: NO AH/VH/paranoia/delusions Suicidal Ideation: No Current Homicidal Ideation?: No Discharge Summary - Discharge Note Reason for Hospitalization: HPI: 28 yo female w/ h/o alcohol and cannabis use disorders and borderline personality disorder, presented acutely intoxicated on ETOH, w/ worsening depression, suicidal ideation, w/ self injurious behaviors (superficial cuts to Right thigh), poor sleep and using Xanax brought from [facility] to sleep at night. Patient is able to contract for safety at this time. She denies AH/VH/HI/paranoia/delusions. She was prescribed Abilify during her last psychiatric admission in November 2017, but was not compliant with treatment or medications following discharge. PPHx: History of psychiatric hospitalization on 3NP in November 2017; not compliant w/ Abilify or outpatient psychiatric treatment PMHx: Denies acute or chronic medical issues PSurgHx: Gallbladder removal (age 19); Gastric bypass (age 22) ALL: NKDA SHx: Drinks 1 bottle of wine/day; uses cannabis daily; uses non-prescribed Xanax; denies cig use; lives alone Consultations:: List each consultation separately and include: 1. Reason for request. 2. Findings. 3. Follow-up Consultations: Medicine consult Summary of Hospital Course include:: 1. Description of specific treatment plan utilized for patients during their course of treatmen. 2. Summarize the time- course for resolution of acute symptoms and/or regressed behaviors. 3. Describe issues identified and worked on during hospitalization. 4. Describe medication utilized. 5. Describe medical problems identified and treated. 6. Reassessment of suicide risk Summary of Hospital Course: Patient was admitted to the psychiatry unit. Individual and group therapy were provided. Patient was stabilized on Abilify 15 mg PO Daily, Trazodone 100 mg PO HS. She was treated w/ Ativan to prevent alcohol withdrawal and gradually tapered off. Psychoeducation provided on the dangers of ETOH abuse and the importance of compliance with treatment and medications. She denies acute depression/anxiety/AH/VH/SI/HI. She is psychiatrically stable for discharge at this time. - Final Diagnosis (DSM 5) Condition upon Discharge: STABLE DSM 5: Alcohol Use Disorder; Alcohol Induced Mood Disorder; Cannabis Use Disorder; Borderline Personality Disorder vs Bipolar II Disorder Disposition: HOME/ ROUTINE Follow-up Treatment Plan: Alcohol Use Disorder; Alcohol Induced Mood Disorder; Cannabis Use Disorder; Borderline Personality Disorder vs Bipolar II Disorder -Psychoeducation provided re: dangers of substance abuse -Vistaril PRN anxiety -Thiamine, Folate, MVI, Vitamin D -Continue Abilify -Continue Trazodone -Medicine consult -Individual and group therapy -Discharge to home under the care of her mother Prescriptions/Medication Reconciliation: ARIPiprazole [Abilify] 15 mg PO DAILY #30 tab hydrOXYzine Pamoate [Vistaril] 25 mg PO Q12 PRN #60 cap PRN Reason: Anxiety traZODone [Desyrel] 100 mg PO HS #30 tab - Smoking Cessation Smoking Cessation Medication prescribed: No Reason for not providing: Not indicated - Antipsychotic Medications Pt discharged on 2 or more routine antipsychotic medications: No
[2018-05-10] MEDS: Bacitracin OINT 15GM TOP SCH (08:44)
[2018-05-10] MEDS: Multivitamin With Minerals Tab PO SCH (08:45)
[2018-05-10] MEDS: Cholecalciferol 400 Intl Units Tab PO SCH (08:45)
== END 2018-05-10 10:25 | disposition home or self-care (01) | DRG 772 ==
LOC: H.ER 23:10 → H.ERHOLD 05-02 06:47 → H.STEP 05-02 10:26
PROVIDERS: ADMIT Psychiatry & Neurology Psychiatry; ATTEND Psychiatry & Neurology Psychiatry
PROC: HZ52ZZZ Individual Psychotherapy for Substance Abuse Treatment, Cognitive-Behavioral (ICD-10-PCS; principal; 2018-05-02)
PROC: GZHZZZZ Group Psychotherapy (ICD-10-PCS; 2018-05-02)
PROC: GZ58ZZZ Individual Psychotherapy, Cognitive-Behavioral (ICD-10-PCS; 2018-05-02)
PROC: 3E0234Z Introduction of Serum, Toxoid and Vaccine into Muscle, Percutaneous Approach (ICD-10-PCS; 2018-05-02)
PROC: 3E02340 Introduction of Influenza Vaccine into Muscle, Percutaneous Approach (ICD-10-PCS; 2018-05-03)
DX: F10.14 Alcohol abuse with alcohol-induced mood disorder (principal); R45.851 Suicidal ideations; F32.9 Major depressive disorder, single episode, unspecified; F10.129 Alcohol abuse with intoxication, unspecified; Y90.8 Blood alcohol level of 240 mg/100 ml or more; F12.10 Cannabis abuse, uncomplicated; F41.9 Anxiety disorder, unspecified; F60.3 Borderline personality disorder; Z91.5 Personal history of self-harm; Z98.84 Bariatric surgery status; Z23 Encounter for immunization